=== PATIENT | female | born 1985 | race Caucasian/White ===

== ENCOUNTER 2017-05-10 18:27 | Emergency (ER) | payer OTHER ==
[~2017-05-10] VITALS: Ht 165.1 cm; Wt 59.1 kg
[~2017-05-10 18:27] MED LIST: ACET500T PO; IBUP80TA PO; MOM30SS PO
[2017-05-10 18:28] VITALS: BP 135/81
[2017-05-10] MEDS ORDERED: CYCL10TA PO (19:21)
== END 2017-05-10 19:35 | disposition home or self-care (01) ==
LOC: M ED 18:27
DX: S29.012A Strain of muscle and tendon of back wall of thorax, initial encounter (principal); V43.52XA Car driver injured in collision with other type car in traffic accident, initial encounter; Y92.410 Unspecified street and highway as the place of occurrence of the external cause; Y93.9 Activity, unspecified; Y99.9 Unspecified external cause status

== ENCOUNTER → 2022-06-07 | Outpatient (CLI) | payer OTHER ==
[~2022-06-07] MED LIST changes: +CYCL-707 PO
== END ==
LOC: M WUC 15:35
PROVIDERS: ATTEND Physician Assistant
DX: S40.012A Contusion of left shoulder, initial encounter (principal); S40.022A Contusion of left upper arm, initial encounter